=== PATIENT | female | born 1955 | race Asian ===

== ENCOUNTER 2020-11-24 12:30 | Outpatient (CLI) | payer MEDICARE, OTHER | END 2020-11-24 23:59 | disposition home or self-care (01) | LOC: CFH 12:30 | PROVIDERS: ATTEND Family Medicine | DX: D25.1 Intramural leiomyoma of uterus (principal); N85.4 Malposition of uterus; N93.8 Other specified abnormal uterine and vaginal bleeding; N95.8 Other specified menopausal and perimenopausal disorders; R93.89 Abnormal findings on diagnostic imaging of other specified body structures; Z80.41 Family history of malignant neoplasm of ovary | CPT/HCPCS: 76830 ==